=== PATIENT | male | born 1930 | race Caucasian/White ===

== ENCOUNTER 2016-11-12 16:51 | Emergency (ER) | payer MEDICARE ==
[~2016-11-12] VITALS: Ht 188 cm; Wt 95.3 kg
[2016-11-12 16:56] VITALS: BP 119/77
[2016-11-12] MEDS ORDERED: NORCO 5-325 TA1 EACH PO ×2 (19:11→19:16)
[2016-11-12] MEDS ORDERED: SENOKOT-S1 TA1 PO ×2 (19:11→19:16)
[2016-11-12] MEDS ORDERED: ACYCLOVIR 400400 MG PO ×2 (19:11→19:16)
[2016-11-12] MEDS ORDERED: LEVOTHYROXIN0.175 MG PO (19:41)
[2016-11-12] MEDS ORDERED: GEMFIBROZIL 60600 MG PO (19:41)
== END 2016-11-12 19:43 | disposition home or self-care (01) ==
LOC: ER 16:51
DX: B02.9 Zoster without complications (principal)